=== PATIENT | female | born 1965 | race African-American/Black ===

== ENCOUNTER 2023-06-22 10:22 | Emergency (ER) | payer BC ==
[~2023-06-22] VITALS: Ht 162.6 cm; Wt 75.0 kg
[2023-06-22 10:36] VITALS: O2SAT 99
[2023-06-22] MEDS ORDERED: HYDROCODONE/ACETAMINOPHEN 10/325MG TABLET PO ONE (11:15)
[2023-06-22] MEDS ORDERED: KETOROLAC 60MG/2ML VIAL IM ONE (11:15)
[2023-06-22] MEDS ORDERED: IBUP-2030 MT (12:43)
[2023-06-22] MEDS ORDERED: TRAM50TA3 MT (12:43)
[2023-06-22 13:09] VITALS: BP 108/55; PULSE 71; RESP 16; TEMP 98.1
== END 2023-06-22 13:14 | disposition home or self-care (01) ==
LOC: ER 10:22
DX: M50.30 Other cervical disc degeneration, unspecified cervical region (principal); I50.9 Heart failure, unspecified; E11.9 Type 2 diabetes mellitus without complications; Z95.0 Presence of cardiac pacemaker
CPT/HCPCS: 99283; 72040; 96372; J1885

== ENCOUNTER 2024-03-09 18:10 | Inpatient (IN) | payer BC ==
[~2024-03-09] VITALS: Ht 162.6 cm; Wt 60.6 kg
[~2024-03-09 18:10] MED LIST: IBUP-2030 MT; TRAM50TA3 MT
[2024-03-09 19:16] LABS: BASOPHILS % 0.7 % (0.0-2.0); EOSINOPHILS % 1.2 % (0.0-5.0); HEMATOCRIT. 38.9 % (36.0-48.0); LYMPHOCYTES % 31.6 % (20.0-50.0); MEAN CORPUSCULAR HEMOGLOBIN 29.6 pg (28.0-32.0); MEAN CORPUSCULAR HGB CONC 33.4 g/dL (31.0-37.0); MEAN CORPUSCULAR VOLUME 88.7 fL (81.0-99.0); MEAN PLATELET VOLUME 9.4 fl (7.4-10.4); MONOCYTES % 8.1 % (2.0-8.0); NEUTROPHILS % 58.4 % (40.0-76.0); PLATELET 298 x1000/uL (130-400); RED BLOOD CELL COUNT 4.39 mill/uL (4.2-5.4); RED CELL DISTRIBUTION WIDTH 13.6 % (11.6-14.6); WHITE BLOOD COUNT 6.8 x1000/uL (4.5-11.0)
[2024-03-09 19:22] LABS: CHLORIDE 103 mEq/L (98-107); POTASSIUM 4.1 mEq/L (3.5-5.1); SODIUM 138 mEq/L (136-145)
[2024-03-09 19:23] LABS: CALCIUM 9.8 mg/dL (8.7-10.4); CARBON DIOXIDE 27 mEq/L (21-32)
[2024-03-09 19:28] LABS: CREATININE 1.2 mg/dL (0.6-1.0); GLUCOSE 284 mg/dL (70-105); UREA NITROGEN BLOOD 22 mg/dL (9-23)
[2024-03-09 19:33] LABS: TROPONIN I HIGH SENSITIVITY 88 ng/L (3.0-34)
[2024-03-09] MEDS: ENOXAPARIN 60MG/0.6ML SYR SUBCUT NR (21:51)
[2024-03-09] MEDS: ASPIRIN 325MG EC TABLET PO NR (21:51)
[2024-03-10] VITALS: BP 110/45; PULSE 74; RESP 16; TEMP 36.3918; O2SAT 98
[2024-03-10] MEDS ORDERED: IPRATROPIUM/ALBUTEROL 0.5-3(2.5)MG/3ML NEB HHN PRN ×2 (01:30→16:00)
[2024-03-10] MEDS ORDERED: ACETAMINOPHEN 325MG TABLET PO PRN ×2 (01:30→16:00)
[2024-03-10] MEDS ORDERED: DEXTROSE 50% WATER 50ML SYRINGE IV PRN (01:30)
[2024-03-10] MEDS: BLOOD SUGAR DIAGNOSTIC STRIP TEST SCH (06:00)
[2024-03-10 06:10] VITALS: BP_SYST 117; BP_SYST 124; BP_DIAS 55; BP_DIAS 59; PULSE 75; RESP 16; RESP 18; TEMP 36.72516; O2SAT 95
[2024-03-10 06:13] VITALS: BP 117/55; PULSE 75; RESP 18; TEMP 36.7516
[2024-03-10] MEDS: INSULIN LISPRO 100 UNITS/ML SUBCUT SCH (07:52)
[2024-03-10] MEDS: LISINOPRIL 5MG TABLET PO SCH (09:00)
[2024-03-10] MEDS: ENOXAPARIN 40MG/0.4ML SYR SUBCUT SCH (09:20)
[2024-03-10] MEDS: FUROSEMIDE 40MG TABLET PO SCH (09:20)
[2024-03-10] MEDS: ASPIRIN 81MG TABLET PO SCH (11:04)
[2024-03-10 12:24] LABS: TROPONIN I HIGH SENSITIVITY 86 ng/L (3.0-34)
[2024-03-10] MEDS ORDERED: HYDROCODONE/ACETAMINOPHEN 5/325MG TABLET PO PRN (16:00)
[2024-03-10] MEDS ORDERED: ENOXAPARIN 40MG/0.4ML SYR SUBCUT SCH (16:00)
[2024-03-10] MEDS ORDERED: ONDANSETRON HCL 4MG/2ML INJ IV PRN (16:00)
[2024-03-10] MEDS ORDERED: ATOR20TA65 PO (16:40)
[2024-03-10] MEDS ORDERED: METF-414 MT (16:40)
[2024-03-10] MEDS ORDERED: FURO-151 PO (16:40)
[2024-03-10] MEDS ORDERED: EMPA10TA PO (16:40)
[2024-03-10] MEDS ORDERED: LISI-186 PO (16:40)
[2024-03-10] MEDS ORDERED: INSU100I33 SQ (16:40)
[2024-03-10 16:51] VITALS: BP 119/53; PULSE 97; RESP 17; TEMP 36.3068
[2024-03-10 18:30] LABS: *AMPHETAMINES SCREEN URINE NEGATIVE (NEGATIVE); *BARBITURATES SCREEN URINE NEGATIVE (NEGATIVE); *BENZODIAZEPINES SCREEN URINE NEGATIVE (NEGATIVE)
[2024-03-10 18:31] LABS: *COCAINE SCREEN URINE NEGATIVE (NEGATIVE); CANNABINOID URINE SCREEN NEGATIVE (NEGATIVE); ECSTASY MDMA SCREEN URINE NEGATIVE (NEGATIVE); METHADONE URINE SCREEN NEGATIVE (NEGATIVE); OPIATES URINE SCREEN NEGATIVE (NEGATIVE); PHENCYCLIDINE URINE SCREEN NEGATIVE (NEGATIVE)
[2024-03-10 20:00] VITALS: BP 100/55; PULSE 85; RESP 18; TEMP 36.61404; O2SAT 95
[2024-03-10] MEDS: ATORVASTATIN CALCIUM 20MG TABLET PO SCH (20:57)
[2024-03-11] VITALS: BP 119/60; PULSE 77; RESP 16; TEMP 36.3918; O2SAT 96
[2024-03-11 04:00] VITALS: BP 111/48; PULSE 85; RESP 20; TEMP 36.50292; O2SAT 98
[2024-03-11 08:00] VITALS: BP 120/66; PULSE 80; RESP 16; TEMP 36.61404; O2SAT 98
[2024-03-11] MEDS ORDERED: HEPARIN 1000 UNITS/ML 10ML ONE (08:25)
[2024-03-11] MEDS ORDERED: VERAPAMIL HCL 2.5 MG/1 ML 2ML VIAL IV ONE (08:25)
[2024-03-11] MEDS ORDERED: IODIXANOL 320MG/ML 100 ML BOTTLE IV ONE (08:26)
[2024-03-11] MEDS ORDERED: LIDOCAINE HCL 1% 20ML VIAL ONE (08:26)
[2024-03-11] MEDS ORDERED: DIPHENHYDRAMINE 50MG/ML VIAL ONE (08:58)
[2024-03-11] MEDS ORDERED: MIDAZOLAM HCL 2 MG/2 ML VIAL ONE (08:58)
[2024-03-11] MEDS ORDERED: FENTANYL CITRATE/PF 50MCG/ML 2ML VIAL ONE (08:58)
[2024-03-11] MEDS ORDERED: ATROPINE SULFATE 1MG/10ML SYR IV PRN (10:00)
[2024-03-11] MEDS: ACETAMINOPHEN 325MG TABLET PO PRN (11:22)
[2024-03-11] MEDS: SODIUM CHLORIDE 0.9% 500 ML IV ONE (12:02)
[2024-03-11] MEDS ORDERED: ASPI-1497 MT (15:49)
[2024-03-11] MEDS ORDERED: ATOR-2 MT (15:49)
[2024-03-11 16:00] VITALS: BP 100/62; PULSE 77; RESP 18; TEMP 36.44736; O2SAT 98
[2024-03-11 17:05] VITALS: BP 100/52; PULSE 80; TEMP 97.9; O2SAT 98
== END 2024-03-11 17:46 | disposition home or self-care (01) | DRG 280 ==
LOC: ER 18:10 → 5WST 20:20 → 7EST 03-10 16:07
PROVIDERS: ADMIT Internal Medicine; ATTEND Internal Medicine
PROC: 4A023N7 Measurement of Cardiac Sampling and Pressure, Left Heart, Percutaneous Approach (ICD-10-PCS; principal; 2024-03-11)
PROC: B2110ZZ Fluoroscopy of Multiple Coronary Arteries using High Osmolar Contrast (ICD-10-PCS; 2024-03-11)
DX: I21.4 Non-ST elevation (NSTEMI) myocardial infarction (principal); I50.21 Acute systolic (congestive) heart failure; E11.9 Type 2 diabetes mellitus without complications; I11.0 Hypertensive heart disease with heart failure; K21.9 Gastro-esophageal reflux disease without esophagitis; I25.10 Atherosclerotic heart disease of native coronary artery without angina pectoris; I25.2 Old myocardial infarction; Z79.4 Long term (current) use of insulin; Z95.0 Presence of cardiac pacemaker; Z79.84 Long term (current) use of oral hypoglycemic drugs; Z79.899 Other long term (current) drug therapy; Z88.0 Allergy status to penicillin; Z90.49 Acquired absence of other specified parts of digestive tract
CPT/HCPCS: 36415; 71045; 80048; 80061; 80305; 82962; 83036; 83880; 84484; 85025; 93005; 93458; 99291; C1769; C1887; C1893; J1200; J1644; J1650; J1815; J2250; J3010; J3490; Q9967

== ENCOUNTER 2024-03-15 14:50 | Emergency (ER) | payer BC ==
[~2024-03-15] VITALS: Ht 160 cm; Wt 60.0 kg
[~2024-03-15 14:50] MED LIST changes: +ASPI-1497 MT; +ATOR-2 MT; +EMPA10TA PO; -IBUP-2030 MT; +INSU100I33 SQ; +LISI-186 PO; +METF-414 MT; -TRAM50TA3 MT
[2024-03-15 14:52] VITALS: O2SAT 99
[2024-03-15 14:53] VITALS: BP 139/77; PULSE 110; RESP 16; TEMP 98.3; O2SAT 99
== END 2024-03-15 16:09 | disposition home or self-care (01) ==
LOC: ER 14:50
DX: R07.89 Other chest pain (principal); R00.0 Tachycardia, unspecified; E78.00 Pure hypercholesterolemia, unspecified; E11.9 Type 2 diabetes mellitus without complications; I50.9 Heart failure, unspecified; Z88.0 Allergy status to penicillin; Z90.49 Acquired absence of other specified parts of digestive tract; Z95.0 Presence of cardiac pacemaker; Z79.899 Other long term (current) drug therapy; Z79.82 Long term (current) use of aspirin
CPT/HCPCS: 99281